=== PATIENT | female | born 2000 | race Caucasian/White ===

== ENCOUNTER 2022-01-30 22:17 | Emergency (ER) | payer BC, SELFPAY ==
[2022-01-30 22:18] VITALS: BP 150/93; PULSE 90; RESP 14; TEMP 37; O2SAT 100; BMI 18.6
--- NOTE | 2022-01-30 22:19 | ECG_ITS ---
APPROVED REPORT Exam: Resting ECG HR:81 bpm ECG Measurements Heart Rate 81 AXES AL 180 P 69 QRSd 86 QRS 83 QT 345 T 57 QTc 382 Conclusion SINUS RHYTHM NORMAL ECG INTERPRETATION BASED ON A DEFAULT AGE OF 40 YEARS UNCONFIRMED REPORT Electronically signed by : Chico Solano MD 01/31/2022 13:48:14
--- NOTE | 2022-01-30 22:24 | XR_ITS ---
PROCEDURE INFORMATION: Exam: XR Chest Exam date and time: 01/30/2022 10:22 PM Age: 21 years old Clinical indication: Chest wall pain; Additional info: Chest pain TECHNIQUE: Imaging protocol: Radiologic exam of the chest. Views: 2 views. COMPARISON: No relevant prior studies available. FINDINGS: Lungs: No acute pulmonary findings. No pulmonary consolidation. Lung volumes within upper normal limits. Pleural spaces: Unremarkable. No significant pleural effusion. No pneumothorax. Heart/Mediastinum: The cardiac silhouette is normal. Bones/joints: Mild thoracolumbar scoliosis. There is no evidence of acute fracture. Soft tissues: No acute findings in the soft tissues. No soft tissue emphysema. IMPRESSION: 1. No acute cardiopulmonary findings. 2. There is no evidence of acute fracture. 3. Thoracolumbar scoliosis.
[2022-01-30 22:32] LABS: Basophils # 0.1 K/mm3 (0-0.2); Basophils % 1.4 % (0.1-2.0); Eosinophils % 0.5 % (0.1-12.0); Hematocrit 43.7 % (37.0-47.0); Hemoglobin 14.1 g/dL (12.2-16.2); Lymphocytes # 1.9 K/mm3 (0.7-4.5); Lymphocytes % 27.2 % (10-50); Mean Corpuscular HGB Conc 32.2 g/dL (31.8-35.4); Mean Corpuscular Hemoglobin 28.1 pg (27.0-31.2); Mean Corpuscular Volume 87.3 fl (81-99); Mean Platelet Volume 8.1 fl (7.4-10.4); Monocytes # 0.2 K/mm3 (0.1-1.0); Monocytes % 2.6 % (1.7-9.3); Neutrophils # 4.9 K/mm3 (1.8-7.8); Neutrophils % 68.3 % (37.0-80.0); Platelet Count 263 K/mm3 (142-424); Red Cell Distribution Width 13.3 % (11.5-17.5); White Blood Count 7.1 K/mm3 (4.5-13.0)
[2022-01-30 22:39] LABS: Alanine Aminotransferase 18 U/L (12-78); Albumin Level 4.6 g/dl (3.5-5.0); Alkaline Phosphatase 89 U/L (38-126); Anion Gap 10.7 mEq/L (5-15); Aspartate Amino Transferase 26 U/L (14-36); Bilirubin,Direct 0.1 mg/dl (0.0-0.4); Bilirubin,Indirect 0.2 mg/dL (0.0-0.9); Bilirubin,Total 0.3 mg/dl (0.2-1.3); Bilirubin,Unconjugated 0.1 mg/dL (0.0-1.1); Blood Urea Nitrogen 9 mg/dl (7-17); Calcium 9.5 mg/dl (8.4-10.2); Carbon Dioxide 28 mmol/L (22.0-30.0); Chloride 103 mmol/L (98-107); Creatinine Clearance Estimated 123 mL/min (50-200); Estimated Glomerular Filt Rate 127 ml/min (>60); GFR (African American) 154 ML/MIN (>60); Glucose 110 mg/dl (74-100); Potassium 3.7 mmoL/L (3.5-5.1); Sodium 138 mmol/L (136-145); Total Protein,Serum 7.3 g/dl (6.3-8.2)
--- NOTE | 2022-01-30 22:41 | HMH.EDCP ---
Discharge Plan Disposition Chief Complaint: Chest Pain Prescriptions Prescriptions: No Action doxycycline hyclate [Vibramycin] 100 mg capsule 100 mg PO BID Qty: 20 0RF triamcinolone acetonide 15 GM cream 1 applicatio TP TIDP PRN (Reason: Itching) 7 Days Qty: 1 0RF Rx Instructions: 0.1% mupirocin 22 GM ointment 1 applicatio TP TID 7 Days Qty: 1 0RF cephalexin 500 MG capsule 500 mg PO Q6H 10 Days Qty: 40 0RF Referrals Follow up/Referrals: Provider,Referral, MD [Referring] - See instructions Clinical Impressions Clinical Impression: Atypical chest pain Instructions Patient Instructions: DI for Atypical Chest Pain Discharge ED Provider: Martin Tejada Chest Pain HPI General Chief Complaint: Chest Pain Stated Complaint: Chest Pain Time Seen by Provider: 01/30/22 22:41 Mode of Arrival: Ambulatory Source of Information: Patient, Significant Other and Medical Record Limitations: No Limitations Description of Symptoms (Recalled from ER Triage Doc. by RN): Pt reports drinking a 16oz energy drink around 4:45pm and has had a sharp pain in her chest since. She denies SOA or radiating pain. She does endorse nause w/o vomiting. Radial pulse is regular w/ a rate of 92. History of Present Illness HPI narrative: acute ches pain after drinking energy drink complaint: chest pain Onset (ago): hour(s) Duration: now resolved Activity at onset: during rest Pain location: epigastric Severity: moderate Quality: sharp Associated symptoms: palpitations Risk Factors for CAD: Family Hx of CAD Treatments prior to or on arrival for Cardiac Chest Pain: none SUKHWINDER Score for Non-Stemi Age of Patient: <30 years old Heart Rate: 90-109 bpm Systolic Blood Pressure: 140-159 mmHg Serum Creatinine: 0.40-0.79 mg/dl CHF [place] Class: I-No CHF Other Risk Factors: None Non-Stemi Risk Score: 43 Related Data On Oral Contraceptives: No Previous Rx's Medication Instructions Recorded cephalexin 500 mg capsule 500 mg PO Q6H 10 days #40 caps 12/06/21 mupirocin 2 % topical ointment 1 applicatio topical TID 7 days ##1 12/06/21 triamcinolone acetonide 0.025 % 1 applicatio topical TIDP PRN 12/06/21 topical cream Itching 7 days ##1 doxycycline hyclate 100 mg capsule 100 mg PO BID #20 caps 12/07/21 (Vibramycin) Allergies Allergy/AdvReac Type Severity Reaction Status Date / Time No Known Allergies Allergy Verified 01/30/22 22:42 PFSH PFSH Social History Smoking Status: Never smoker alcohol intake: never current occupational status: employed Travel in the last 8 weeks: None ROS Obtained: Yes All systems reviewed & no additional complaints except as documented Physical Exam General General appearance: alert Head Head exam: normocephalic Eye Eye exam: Present PERRL and EOMI ENT ENT exam: Present mucous membranes moist Neck Neck exam: Present trachea midline Respiratory Respiratory exam: Present normal lung sounds bilaterally Cardiovascular Cardiovascular exam: Present regular rate; Absent systolic murmur, rubs or gallop Abdominal Exam Abdominal exam: Present soft Extremities Exam Extremities exam: Present full ROM Neurological Exam Neurological exam: Present alert, oriented X3 and CN II-XII intact Psychiatric Psychiatric exam: Present normal affect Skin Skin exam: Absent rash Medical Decision Making Medical Records Medical records reviewed: Yes I reviewed the patient's medical records. Anam Inquiry Pt receiving controlled substance: No Vital Signs: 01/30/22 22:18 Temperature 98.6 F Temperature Source Oral Pulse Rate [Right Radial] 90 Respiratory Rate 14 Blood Pressure [Right Arm] 150/93 H Blood Pressure Mean [Right Arm] 112 Blood Pressure Source [Right Arm] Automatic Cuff Blood Pressure Position [Right Arm] Sitting 02 Sat by Pulse Oximetry 100 Oxygen Delivery Method Room Air Lab Data Lab results reviewed: Yes I reviewed the patient's lab results. Lab Results
[2022-01-30 22:44] LABS: C-Reactive Protein 0.8 mg/L (0-4)
[2022-01-30 22:45] VITALS: BP 117/75; PULSE 78; RESP 14; O2SAT 100
[2022-01-30 22:55] LABS: Troponin I < 0.01 ng/ml (0.00-0.034)
[2022-01-30 22:59] LABS: Procalcitonin < 0.030 ng/mL (0.0-2.0)
[2022-01-30 23:00] LABS: Erythrocyte Sedimentation Rate 5 mm/hr (0-20)
[2022-01-30 23:04] LABS: Lipase 70 U/L (23-300)
[2022-01-30 23:15] VITALS: BP 101/59; PULSE 71; RESP 14; O2SAT 99
--- NOTE | 2022-01-30 23:18 | PC.NURSE ---
Pt states she is feeling alot better
[2022-01-30 23:58] VITALS: BP 119/62; PULSE 81; PULSE 84; RESP 19; TEMP 36.6; O2SAT 100
== END 2022-01-31 00:02 | disposition home or self-care (01) ==
PROVIDERS: Emergency Provider Emergency Medicine; PCP Nurse Practitioner Family
DX: R07.89 Other chest pain (principal)
CPT/HCPCS: 71046; 80048; 80076; 83690; 84145; 84484; 85025; 85651; 86140; 93005; 96365; 96375; 99284; J2405

== ENCOUNTER → 2022-11-30 16:10 | Outpatient (CLI) | payer BC, SELFPAY ==
[2022-12-02 08:17] LABS: Progesterone 15.3 ng/mL (.)
== END ==
PROVIDERS: PCP Nurse Practitioner Family; Visit Provider Obstetrics & Gynecology
DX: N92.6 Irregular menstruation, unspecified (principal); Z32.00 Encounter for pregnancy test, result unknown
CPT/HCPCS: 36415; 84144; 84702

== ENCOUNTER → 2023-01-30 14:01 | Outpatient (CLI) | payer BC, SELFPAY | PROVIDERS: Visit Provider Obstetrics & Gynecology | DX: Z34.92 Encounter for supervision of normal pregnancy, unspecified, second trimester (principal); Z3A.16 16 weeks gestation of pregnancy | CPT/HCPCS: 87086 ==

== ENCOUNTER → 2023-02-02 09:37 | Outpatient (CLI) | payer BC, SELFPAY ==
[2023-02-02 10:05] LABS: Basophils % 0.2 % (0.1-2.0); Eosinophils % 0.5 % (0.1-12.0); Hematocrit 38.2 % (37.0-47.0); Hemoglobin 12.4 g/dL (12.2-16.2); Lymphocytes # 1.5 K/mm3 (0.7-4.5); Lymphocytes % 24.7 % (10-50); Mean Corpuscular HGB Conc 32.5 g/dL (31.8-35.4); Mean Corpuscular Hemoglobin 28.2 pg (27.0-31.2); Mean Corpuscular Volume 86.7 fl (81-99); Mean Platelet Volume 7.4 fl (7.4-10.4); Monocytes # 0.2 K/mm3 (0.1-1.0); Monocytes % 3.1 % (1.7-9.3); Neutrophils # 4.4 K/mm3 (1.8-7.8); Neutrophils % 71.5 % (37.0-80.0); Platelet Count 163 K/mm3 (142-424); Red Cell Distribution Width 13.5 % (11.5-17.5); White Blood Count 6.1 K/mm3 (4.8-10.8)
[2023-02-03 08:24] LABS: Rubella Antibodies, IgG 1.61 index (Immune >0.99)
[2023-02-03 11:34] LABS: Rapid Plasma Reagin Ab Titer Non Reactive (NonRea<1:1)
[2023-02-12 12:07] LABS: HIV Screen 4th Generation wRfx Non Reactive; Hepatitis B Surface Antigen Negative; Hepatitis C Antibody Non Reactive
== END ==
PROVIDERS: Visit Provider Obstetrics & Gynecology
DX: Z34.92 Encounter for supervision of normal pregnancy, unspecified, second trimester (principal); Z3A.16 16 weeks gestation of pregnancy
CPT/HCPCS: 36415; 85025; 86593; 86703; 86762; 86850; 87340; 87380; G0432

== ENCOUNTER → 2023-03-23 12:41 | Outpatient (CLI) | payer BC, SELFPAY ==
--- NOTE | 2023-03-23 12:41 | US_ITS ---
PROCEDURE: US OB /MATERNAL DETAIL CLINICAL INDICATION: 20 week anatomy scan COMPARISON: No exams were available for comparison FINDINGS: Transabdominal sonographic images of the pelvis were obtained. From her established due date she is 23 weeks 2 days. Single viable intrauterine gestation. Cephalic position. Placenta: Posteriorplacenta grade 1. There is an average amount of fluid. The cervix appears satisfactory. Closed and measuring 2.8cm in length. Complete survey performed and was unremarkable on the submitted images as in PACS. No discrete anomalies identified on survey imaging by technologist. Active fetus. Three-vessel cord with satisfactory umbilical cord insertion. 4- chamber heart noted. Situs, LVOT, RVOT, aortic arch, three-vessel view appear normal. Survey of brain & ventricles Unremarkable. Choroid plexus, cerebellum, thalamus, cisterna magna appear normal. Face and neck survey unremarkable. Profile, nasion, lips and nose appeared normal. Diaphragm and chest views unremarkable. Abdomen: Both kidneys noted and unremarkable. Stomach and bladder noted and satisfactory. Spine: Survey of the spine satisfactory with no anomalies identified nor imaged. Cervical, thoracic and lower spine appear normal. Both arms and legs noted. Amniotic Fluid: Adequate. Measurements: Average ultrasound age 23weeks 0 days. Estimated due date by ultrasound age 0207/20/2023. Estimated weight 535g BPD = 23weeks 2days HC = 22weeks 6days AC = 22weeks 6days FL = 22weeks 5days Growth Percentile= 21 Heart Rate = 147bpm Cerebellum = 23weeks 1day Humerus = 23weeks 1day HC/AC is 1.15 FL/BPD is 0.7 FL/AC is 0.22 IMPRESSION: 1. Viable fetus in the cephalic presentation with a posterior placenta grade 1. 2. The fluid is within normal limits. 3. The anatomical scan appears normal. 4. biometry is consistent with dates. Dictated by: Amol Joy MD 03/26/2023 08:39 Amol Joy MD in OV 03/26/2023 08:39
== END ==
PROVIDERS: PCP Family Medicine; Visit Provider Obstetrics & Gynecology
DX: Z34.92 Encounter for supervision of normal pregnancy, unspecified, second trimester (principal); Z3A.20 20 weeks gestation of pregnancy
CPT/HCPCS: 76811

== ENCOUNTER → 2023-04-24 07:47 | Outpatient (CLI) | payer BC, SELFPAY ==
[2023-04-24 08:15] LABS: Basophils # 0.1 K/mm3 (0-0.2); Basophils % 0.6 % (0.1-2.0); Eosinophils # 0.1 K/mm3 (0.0-0.4); Eosinophils % 0.7 % (0.1-12.0); Hematocrit 34.4 % (37.0-47.0); Hemoglobin 11.7 g/dL (12.2-16.2); Lymphocytes # 2.1 K/mm3 (0.7-4.5); Lymphocytes % 26.3 % (10-50); Mean Corpuscular Hemoglobin 27.8 pg (27.0-31.2); Mean Corpuscular Volume 81.8 fl (81-99); Mean Platelet Volume 8.4 fl (7.4-10.4); Monocytes # 0.3 K/mm3 (0.1-1.0); Monocytes % 4.2 % (1.7-9.3); Neutrophils # 5.4 K/mm3 (1.8-7.8); Neutrophils % 68.2 % (37.0-80.0); Platelet Count 196 K/mm3 (142-424); Red Cell Distribution Width 13.6 % (11.5-17.5); White Blood Count 7.9 K/mm3 (4.8-10.8)
[2023-04-24 08:24] LABS: Glucose,Fasting 81 mg/dl (74-100)
[2023-04-24 09:40] LABS: Glucose 1 Hour 118 mg/dL (74-100)
== END ==
PROVIDERS: PCP Family Medicine; Visit Provider Obstetrics & Gynecology
DX: Z34.93 Encounter for supervision of normal pregnancy, unspecified, third trimester (principal); Z3A.28 28 weeks gestation of pregnancy
CPT/HCPCS: 36415; 82951; 85025

== ENCOUNTER → 2023-05-02 16:45 | Outpatient (CLI) | payer BC, SELFPAY | PROVIDERS: PCP Family Medicine; Visit Provider Obstetrics & Gynecology | DX: Z34.93 Encounter for supervision of normal pregnancy, unspecified, third trimester (principal); Z3A.29 29 weeks gestation of pregnancy | CPT/HCPCS: 36415 ==

== ENCOUNTER 2023-05-03 11:56 | Outpatient (CLI) | payer BC, SELFPAY ==
[2023-05-03 12:06] VITALS: BP 128/78; PULSE 91; RESP 18; TEMP 37.2; O2SAT 100
== END 2023-05-03 12:18 | disposition home or self-care (01) ==
LOC: INF 11:59
PROVIDERS: PCP Family Medicine; Visit Provider Obstetrics & Gynecology
DX: O26.893 Other specified pregnancy related conditions, third trimester (principal); Z3A.29 29 weeks gestation of pregnancy
CPT/HCPCS: 96372; J2790

== ENCOUNTER 2023-06-21 22:04 | Outpatient (CLI) | payer OTHER, SELFPAY | END 2023-06-21 23:59 | LOC: LAB.DROPOF 22:04 | PROVIDERS: PCP Obstetrics & Gynecology; Visit Provider Obstetrics & Gynecology | DX: Z34.93 Encounter for supervision of normal pregnancy, unspecified, third trimester (principal); Z3A.36 36 weeks gestation of pregnancy | CPT/HCPCS: 86403 ==

== ENCOUNTER 2023-06-25 16:22 | Outpatient (CLI) | payer OTHER, SELFPAY ==
[2023-06-25 16:53] VITALS: BMI 25.5
[2023-06-25 17:01] VITALS: BP 145/79; PULSE 92; RESP 20; TEMP 37.2; O2SAT 95; BMI 24.7
[2023-06-25 17:10] LABS: Microscopic, Urine URINE MICROSCOPIC (MICROSCOPIC)
[2023-06-25 17:17] LABS: Appearance,Urine CLEAR (Clear); Bilirubin,Urine Negative (Negative); Blood, Urine Negative (Negative); Color,Urine YELLOW (Yellow); Glucose,Urine (UA) Negative (Negative); Ketones,Urine Negative (Negative); Leukocyte Esterase,Urine 1+ (Negative); Nitrate,Urine Negative (Negative); Protein,Urine Negative (Negative); Specific Gravity, Urine >= 1.030 (1.005-1.030); Urobilinogen,Urine 0.2 EU/dl (0.2)
[2023-06-25 17:28] LABS: Fetal Membrane Rupture (Rapid) Negative (Negative)
[2023-06-25 18:07] LABS: Bacteria,Urine Trace /lpf; Calcium Oxalate Crystals,Urine 1+ /lpf; RBC,Urine Occasional #/hpf (0-3)
[2023-06-25] MEDS: LACTATED RINGERS 1000ML 1,000 ML 999 ML IV (18:17)
[2023-06-25 21:06] LABS: Benzodiazepines Screen,Urine Negative ng/ml (<200)
[2023-06-25 21:07] LABS: Amphetamine/Metha Screen,Urine Negative ng/ml (<1000)
[2023-06-25 21:08] LABS: Barbiturates Screen,Urine Negative ng/ml (<200); Methadone Screen,Urine Negative ng/ml (<300)
[2023-06-25 21:09] LABS: Cannabinoid Screen,Urine Negative ng/ml (<50); Cocaine Screen,Urine Negative ng/ml (<300)
[2023-06-25 21:10] LABS: Opiate Screen,Urine Negative ng/ml (<300)
[2023-06-25 21:11] LABS: Phencyclidine Screen,Urine Negative ng/ml (<25)
== END 2023-06-25 18:59 | disposition home or self-care (01) ==
LOC: OBOUT 16:25 → OB 16:26
PROVIDERS: PCP Family Medicine; Visit Provider Nurse Practitioner Obstetrics & Gynecology
DX: O26.893 Other specified pregnancy related conditions, third trimester (principal); Z3A.36 36 weeks gestation of pregnancy
CPT/HCPCS: 59025; 80307; 81001; 84112; 87086; 96365; G0463

== ENCOUNTER 2023-07-05 14:25 | Inpatient (IN) | payer OTHER, SELFPAY ==
[2023-07-05 14:07] VITALS: BMI 26.1
[2023-07-05 14:23] LABS: Microscopic, Urine URINE MICROSCOPIC (MICROSCOPIC)
[2023-07-05 14:26] LABS: Appearance,Urine SL CLOUDY (Clear); Bilirubin,Urine Negative (Negative); Blood, Urine 2+ (Negative); Color,Urine YELLOW (Yellow); Glucose,Urine (UA) Negative (Negative); Ketones,Urine Negative (Negative); Leukocyte Esterase,Urine 1+ (Negative); Nitrate,Urine Negative (Negative); Protein,Urine Negative (Negative); Specific Gravity, Urine >= 1.030 (1.005-1.030)
[2023-07-05 14:31] LABS: Benzodiazepines Screen,Urine Negative ng/ml (<200)
[2023-07-05 14:32] LABS: Barbiturates Screen,Urine Negative ng/ml (<200)
[2023-07-05 14:34] LABS: Cocaine Screen,Urine Negative ng/ml (<300)
[2023-07-05 14:35] LABS: Methadone Screen,Urine Negative ng/ml (<300); Opiate Screen,Urine Negative ng/ml (<300)
[2023-07-05 14:36] LABS: Phencyclidine Screen,Urine Negative ng/ml (<25)
[2023-07-05 14:41] LABS: Cannabinoid Screen,Urine Negative ng/ml (<50)
[2023-07-05 14:43] LABS: Bacteria,Urine 1+ /lpf
[2023-07-05 14:51] LABS: Fetal Membrane Rupture (Rapid) Negative (Negative)
[2023-07-05 14:57] LABS: Basophils % 0.3 % (0.1-2.0); Eosinophils % 0.2 % (0.1-12.0); Hematocrit 31.9 % (37.0-47.0); Hemoglobin 10.7 g/dL (12.2-16.2); Lymphocytes # 1.6 K/mm3 (0.7-4.5); Lymphocytes % 16.6 % (10-50); Mean Corpuscular HGB Conc 33.6 g/dL (31.8-35.4); Mean Corpuscular Hemoglobin 24.8 pg (27.0-31.2); Mean Corpuscular Volume 73.9 fl (81-99); Mean Platelet Volume 8.7 fl (7.4-10.4); Monocytes # 0.5 K/mm3 (0.1-1.0); Monocytes % 4.6 % (1.7-9.3); Neutrophils # 7.6 K/mm3 (1.8-7.8); Neutrophils % 78.3 % (37.0-80.0); Platelet Count 199 K/mm3 (142-424); Red Blood Count 4.32 M/mm3 (4.20-5.40); Red Cell Distribution Width 16.3 % (11.5-17.5); White Blood Count 9.7 K/mm3 (4.8-10.8)
[2023-07-05 15:01] LABS: Amphetamine/Metha Screen,Urine Negative ng/ml (<1000)
--- NOTE | 2023-07-05 16:16 | EXP.ANES.CKL ---
[facility] Disclaimer: The information contained in this section may have been updated after the patient was seen, as this information can be updated by other users. Medical History Nausea and vomiting during Rh negative state in antepartum period Screening for genetic disease carrier status 01/12/23 Horizon carrier screen is negative for 14 conditions tested including CF, Fragile X and SMA Surgical History History of tonsillectomy and adenoidectomy Family History Other No significant family history Social History Smoking Status: Never smoker alcohol intake: never substance use type: denies use current occupational status: employed Travel in the last 8 weeks: None [facility] Anesthesia Checklist Patient Identification Patient Identification: Verbal (Name & ) Structural Data Admitted From: Inpatient Planned Operative Procedure/s: labor epidural Consent for Planned Operative Procedure(s) Verified: Yes Airway Assessment Mallampati Score:: Class II C-Spine Mobility Assessed: Yes TMJ Mobility Assessed: Yes Dentition: Good Dentition Neurological Assessment Level of Consciousness: Awake, Alert and Appropriate Anesthesia Plan Anesthesia Risk discussed: Yes Anesthesia Plan: Verified ASA Class: II Anesthesia Type: Epidural
[2023-07-05 16:35] VITALS: BP 152/72; PULSE 109; RESP 18; TEMP 37; O2SAT 99; BMI 25.2
--- NOTE | 2023-07-05 18:00 | P.HP_ITS ---
OB - H&P: HPI Antepartum History of Present Illness Chief complaint: Regular, painful contractions History of present illness: Mrs Pricilla Salter is a 23 yo at 38w1d who presents to [facility] Labor and Delivery with painful contractions that started at 0900 and progressively increased in intensity and frequency as the day progressed. Good movement. She states for the past 2 days she was soaking pads. She has had good care. GBS negative. Upon arrival to triage SVE was 5/90/+1. Amnisure was negative. History of Present Criteria for establishing EDC:: LMP confirmed by 1st trimester US care: good care Ultrasounds: normal mid trimester US Obstetrical complications: none Medical complications: none Labs Blood type: O (-) negative Rubella: immune RPR/VDRL: nonreactive GBS status: negative [facility]: [facility] Disclaimer: The information contained in this section may have been updated after the patient was seen, as this information can be updated by other users. Medical History (Updated 07/05/23 @ 18:19 by Alison Rosenbaum DO) 38 weeks gestation of Active labor Nausea and vomiting during Rh negative state in antepartum period Screening for genetic disease carrier status Surgical History History of tonsillectomy and adenoidectomy Family History Other No significant family history Social History (Updated 07/05/23 @ 17:05 by Shreyas Santos RN) Smoking Status: Never smoker alcohol intake: never substance use type: denies use current occupational status: employed Travel in the last 8 weeks: None Review of Systems Review of Systems Review of systems:: pertinent systems reviewed and negative unless documented below *Genitourinary Comments: + regular, painful contractions, leaking fluid Meds Home Medications and Allergies Home Medications Medication Instructions Recorded Confirmed Type vits no.126-ferrous fum 1 tab PO DAILY 03/02/23 06/28/23 History 28 mg iron-folic acid 800 mcg tablet (Classic ) New Prescriptions to Start Prescriptions: Allergies Allergy/AdvReac Type Severity Reaction Status Date / Time No Known Allergies Allergy Verified 06/28/23 15:59 OB - H&P: Exam Physical Exam Vital signs: Temp Pulse Resp BP Pulse Ox O2 Del Method 98.6 F 109 H 18 152/72 H 99 Room Air 07/05/23 16:35 07/05/23 16:35 07/05/23 16:35 07/05/23 16:35 07/05/23 16:35 07/05/23 16:35 Constitutional no acute distress and cooperative Routine HEENT Exam Head: Present normocephalic and atraumatic Eye: Absent conjunctivae pink ENT: Present mucous membranes moist Routine Neck Exam Present full ROM Routine Respiratory Exam Present CTA bilaterally and normal respiratory effort Routine Cardiovascular Exam Present RRR Routine Abdominal Exam Present soft (Gravid); Absent tenderness Routine Rectal Exam Patient deferred: visual exam Routine Exam External: Present normal urethra appearance; Absent erythema, lesions or lacerations Routine Extremities Exam Present full ROM; Absent edema or calf tenderness Routine Neurological Exam Present alert, moving all extremities and normal speech Routine Psychiatric Exam Present normal affect and cooperative Detailed Labor and Delivery Exam Dilation (cm): 5 Effacement (%): 90 Cervix position: mid station: 0 Consistency: soft Membranes: artificially ruptured Amniotic fluid: clear Baseline heart rate: 130 monitor accelerations: Absent monitor decelerations: None data management variability: Moderate (11-25) Contraction frequency (min): 3 OB - Results Labs Labs: Short CBC 07/05/23 Range/Units 14:45 WBC 9.7 (4.8-10.8) K/mm3 Hgb 10.7 L (12.2-16.2) g/dL Hct 31.9 L (37.0-47.0) % Plt Count 199 (142-424) K/mm3 Urine 07/05/23 Range/Units 14:05 Urine Color Yellow (Yellow) Urine Appearance Sl cloudy (Clear) Urine pH 6.0 (5.0-8.5) Ur Specific [place] >= 1.030 (1.005-1.030) Urine Protein Negative (Negative) Urine Glucose (UA) Negative (Negative) OB - A/P Antepartum (1) 38 weeks gestation of : Status: Acute (2) Active labor: Status: Acute (3) Rh negative state in antepartum period: Status: Acute Additional Plan Planning to breastfeed?: No Plan: expectant management
[2023-07-05] MEDS: OXYTOCIN/RINGERS LACTATE 30 UNITS/500 ML BAG 40 UNITS IV (20:59)
--- NOTE | 2023-07-05 21:06 | EXP.DN ---
Delivery Note Delivery Date:: 07/05/23 Delivery Time:: 20:53 Anesthesia Type: Epidural Was labor medically induced?: No Induction method: none Gestational age (weeks): 38 Infant delivered prior to 39 weeks?: Yes Justification for early elective delivery:: Active Labor Gender: Female at 1 minute: 7 at 5 minutes: 9 Delivery Procedure:: Mom complete with epidural. Pushed for approximately 90 minutes. Head delivered spontaneously over intact perineum in direct OA position. No nuchal cord. Anterior shoulder delivered with gentle downward pressure. Posterior shoulder and remainder of body delivered spontaneously. Baby placed on maternal abdomen, mouth and nares bulb suctioned, warmed/dried and stimulated. Delayed cord clamping was performed for 60 seconds. Cord was clamped and cut by grandmother of baby. Cord gas obtained. Cord blood was obtained. Placenta delivered spontaneously and intact. No lacerations. Mom and baby were skin to skin and doing well after delivery. Live female baby (baby's name is Rimma) APGARs 7 (1 min), 9 (5 min) EBL 150 mL Placental Delivery Description: Spontaneous
[2023-07-05 21:07] LABS: Cord Blood PH 7.34 (7.35-7.45)
[2023-07-06] MEDS: BENZOCAINE-MENTHOL SPRAY 56GM CAN TP (00:10)
[2023-07-06] MEDS: WITCH HAZEL 40 PADS/BOX 1 EACH TP (00:10)
[2023-07-06 04:34] VITALS: BP 133/59; PULSE 96; RESP 18; TEMP 36.7; O2SAT 99
[2023-07-06 06:53] LABS: Basophils % 0.2 % (0.1-2.0); Eosinophils % 0.1 % (0.1-12.0); Hematocrit 31.1 % (37.0-47.0); Hemoglobin 10.3 g/dL (12.2-16.2); Lymphocytes # 1.5 K/mm3 (0.7-4.5); Lymphocytes % 12.4 % (10-50); Mean Corpuscular HGB Conc 33.2 g/dL (31.8-35.4); Mean Corpuscular Hemoglobin 24.4 pg (27.0-31.2); Mean Corpuscular Volume 73.5 fl (81-99); Mean Platelet Volume 9.6 fl (7.4-10.4); Monocytes # 0.6 K/mm3 (0.1-1.0); Monocytes % 4.7 % (1.7-9.3); Neutrophils # 10.3 K/mm3 (1.8-7.8); Neutrophils % 82.6 % (37.0-80.0); Platelet Count 175 K/mm3 (142-424); Red Blood Count 4.23 M/mm3 (4.20-5.40); Red Cell Distribution Width 16.4 % (11.5-17.5); White Blood Count 12.5 K/mm3 (4.8-10.8)
[2023-07-06 08:08] VITALS: BP 137/79; PULSE 108; RESP 16; TEMP 37.1; O2SAT 97
[2023-07-06] MEDS: IBUPROFEN 400 MG TABLET 800 MG PO ×2 (09:47→19:01)
--- NOTE | 2023-07-06 12:09 | P.PN_ITS ---
Subjective *Date: 07/06/23 *Time: 12:40 Interval history: PPD # 1 s/p Pricilla is resting comfortably. Denies pain. Formula feeding. Lochia appropriate. Voiding without difficulty and passing flatus. Tolerating regular diet. Denies fever/chills, chest pain and shortness of breath. No headaches, vision changes or swelling. Ambulating well ad teresa. Medical Exam Vital signs and Labs for Last 24 Hours: Vital Signs Temp Pulse Resp BP Pulse Ox O2 Del Method 07/06/23 08:08 98.8 F 108 H 16 137/79 97 Room Air 07/06/23 04:34 98.1 F 96 H 18 133/59 L 99 Room Air 07/05/23 16:35 98.6 F 109 H 18 152/72 H 99 Room Air Intake and Output 07/05/23 07/06/23 07/06/23 23:59 07:59 15:59 Intake Total 900 / 900 Balance 900 / 900 Intake: Intake, Total IV Amount 450 / 450 Oxytocin/Ringers Lactate 30 450 / 450 units In 500 ml @ 40 mls/hr IV .[id number] [facility] Rx#:[id number] Infusion Intake 450 / 450 Oxytocin/Ringers Lactate 30 450 / 450 units In 500 ml @ 40 mls/hr IV .[id number] [facility] Rx#:[id number] Other: Weight 152 lb Laboratory Results - last 24 hr 07/05/23 14:05: Urine Color Yellow, Urine Appearance Sl cloudy, Urine pH 6.0, Ur Specific [place] >= 1.030, Urine Protein Negative, Urine Glucose (UA) Negative, Urine Ketones Negative, Urine Blood 2+, Urine Nitrate Negative, Urine Bilirubin Negative, Urine Urobilinogen 1.0, Ur Leukocyte Esterase 1+ A, Urine RBC 3-5, Urine WBC 10-20, Ur Squamous Epith Cells 5-10, Urine Bacteria 1+, Urine Opiates Screen Negative, Urine Methadone Screen Negative, Ur Barbituates Screen Negative, Ur Phencyclidine Scrn Negative, Ur Amphetamines Screen Negative, U Benzodiazepines Scrn Negative, Urine Cocaine Screen Negative, U Marijuana (THC) Screen Negative 07/05/23 14:45: WBC 9.7, RBC 4.32, Hgb 10.7 L, Hct 31.9 L, MCV 73.9 L, MCH 24.8 L, MCHC 33.6, RDW 16.3, Plt Count 199, MPV 8.7, Neut % (Auto) 78.3, Lymph % (Auto) 16.6, Bibb % (Auto) 4.6, Eos % (Auto) 0.2, Baso % (Auto) 0.3, Neut # (Auto) 7.6, Lymph # (Auto) 1.6, Bibb # (Auto) 0.5, Eos # (Auto) 0.0, Baso # (Auto) 0.0, Blood Type O Negative, Antibody Screen Positive, Antibody Identification Anti-D 07/05/23 20:55: Cord ABG pH 7.34 L 07/05/23 : Membrane Rupture Negative 07/06/23 06:40: WBC 12.5 H D, RBC 4.23, Hgb 10.3 L, Hct 31.1 L, MCV 73.5 L, MCH 24.4 L, MCHC 33.2, RDW 16.4, Plt Count 175, MPV 9.6, Neut % (Auto) 82.6 H, Lymph % (Auto) 12.4, Bibb % (Auto) 4.7, Eos % (Auto) 0.1, Baso % (Auto) 0.2, Neut # (Auto) 10.3 H, Lymph # (Auto) 1.5, Bibb # (Auto) 0.6, Eos # (Auto) 0.0, Baso # (Auto) 0.0 I & O for Labs for Last 24 Hours: Intake & Output 07/03/23 07/04/23 07/05/23 07/06/23 23:59 23:59 23:59 23:59 Intake Total 900 / 900 Balance 900 / 900 Weight 152 lb Head: Present atraumatic and normocephalic ENT: Present normal exam Neck: Present full ROM Respiratory: Present CTA bilaterally and normal respiratory effort Cardiac: Present Reg Rate and Rhythm GI: Present soft; Absent tenderness Comments:: Uterine fundus firm and below umbilicus Rectal (female): Present deferred (female): Present deferred Extremities: Present full ROM; Absent edema or calf tenderness Neuro: Present alert, awake and moves all extremities Assessment and Plan *Assessment and plan (1) Status post vaginal delivery: Status: Acute Category: Surgical (2) 38 weeks gestation of : Status: Acute Category: Medical Code(s): Z3A.38 - 38 weeks gestation of (3) Active labor: Status: Acute Category: Medical (4) Rh negative state in antepartum period: Status: Acute Category: Medical Code(s): O26.899 - Other specified related conditions, unspecified trimester; Z67.91 - Unspecified blood type, Rh negative Plan Continue routine care Encouraged increased ambulation AM H/H = 10.3/31.1 (Admission H/H = 10.7/31.9) Plan d/c home tomorrow
[2023-07-06] MEDS: ACETAMINOPHEN 500MG TAB 1000 MG PO (14:37)
[2023-07-06] MEDS: LACTATED RINGERS 1000ML 1,000 ML 999 ML IV (15:02)
[2023-07-06] MEDS: PRENATAL MULTIVITAMIN W/IRON 1 EACH PO (17:14)
[2023-07-06 20:39] VITALS: BP 143/74; PULSE 110; RESP 18; TEMP 37.4; O2SAT 97
[2023-07-07] MEDS: IBUPROFEN 400 MG TABLET 800 MG PO (02:45)
[2023-07-07 04:37] VITALS: BP 139/66; PULSE 90; RESP 17; TEMP 36.9; O2SAT 97
[2023-07-07 08:44] VITALS: BP 131/82; PULSE 89; RESP 18; TEMP 36.9; O2SAT 99
--- NOTE | 2023-07-07 11:00 | P.DS_ITS ---
General Admission date:: 07/05/23 Discharge date: 07/07/23 HPI HPI HPI: Chief complaint: Regular, painful contractions History of present illness: Mrs Pricilla Salter is a 23 yo at 38w1d who presents to [facility] Labor and Delivery with painful contractions that started at 0900 and progressively increased in intensity and frequency as the day progressed. Good movement. She states for the past 2 days she was soaking pads. She has had good care. GBS negative. Upon arrival to triage SVE was 5/90/+1. Amnisure was negative. History of Present Criteria for establishing EDC:: LMP confirmed by 1st trimester US care: good care Ultrasounds: normal mid trimester US Obstetrical complications: none Medical complications: none Labs Blood type: O (-) negative Rubella: immune RPR/VDRL: nonreactive GBS status: negative HBsAG: negative Hospital Course Hospital Course Hospital Course: Pricilla is a 23yo PPD#2 from a . She is resting comfortably. Reports she is tired as infant was up most of the night with an upset stomach. Infant currently resting peacefully. Denies pain. Formula feeding. Declines resources. Lochia appropriate. Voiding without difficulty and passing flatus. Tolerating regular diet. Denies fever/chills, chest pain and shortness of breath. No headaches, vision changes or swelling. Ambulating well ad teresa. routine discharge instructions reviewed with the patient in detail and she voiced understanding all questions and concerns were addressed. Exam Data for Last 24 hours Vital signs and Labs for Last 24 Hours: Temp Pulse Resp BP Pulse Ox O2 Del Method 98.5 F 89 18 131/82 99 Room Air 07/07/23 08:44 07/07/23 08:44 07/07/23 08:44 07/07/23 08:44 07/07/23 08:44 07/07/23 08:44 I & O for Last 24 hours: Intake & Output 07/04/23 07/05/23 07/06/23 07/07/23 23:59 23:59 23:59 23:59 Intake Total 900 / 900 Balance 900 / 900 Weight 152 lb Narrative: Head: atraumatic and normocephalic ENT: normal exam Neck: full ROM Respiratory: CTA bilaterally and normal respiratory effort Cardiac: Reg Rate and Rhythm GI: soft; Absent tenderness Comments:: Uterine fundus firm and below umbilicus Extremities: full ROM; Absent edema or calf tenderness Neuro: alert, awake and moves all extremities Constitutional Constitutional: no acute distress *Routine HEENT Exam Head: Present normocephalic Eye: Present EOMI and PERRL ENT: Present mucous membranes moist *Routine Neck Exam Neck: Present supple; Absent lymphadenopathy *Routine Respiratory Exam Respiratory: Present CTA bilaterally *Routine Cardiovascular Exam Cardiovascular: Present RRR *Routine Abdominal Exam Abdominal: Present soft and normoactive bowel sounds; Absent tenderness *Routine Extremities Exam Extremities: Absent cyanosis, clubbing or edema *Routine Skin Exam Skin: Present warm; Absent rash *Routine Neurological Exam Neurological: Present alert and oriented X3 DS: Diagnosis Discharge Diagnosis (1) Status post vaginal delivery: Status: Acute (2) 38 weeks gestation of : Status: Acute Code(s): Z3A.38 - 38 weeks gestation of (3) Active labor: Status: Acute (4) Rh negative state in antepartum period: Status: Acute Code(s): O26.899 - Other specified related conditions, unspecified trimester; Z67.91 - Unspecified blood type, Rh negative Problem details: Stable. PPD#2 s/p -Doing well. VSS. -Serial lochia and fundal checks have been appropriate for course. -O-/antibody positive: Anti-D -Bottle feeding, male infant -Reports no concerns for mental health. Denies any symptoms of anxiety or depression -Follow-up 2 weeks for routine visit and incision check #Anemia -Hemoglobin: 10.7--> 10.3 - asymptomatic anemia noted. Likely physiologic anemia of -Vitals stable. -DC with Fe -EBL: 150mL #Rh negative -infant blood type O negative. rhogam not indicated -Dispo: home today pending mother/ status Meds Home Medications and Allergies Home Medications Medication Instructions Recorded Confirmed Type vits no.126-ferrous fum 1 tab PO DAILY Supplement 03/02/23 07/06/23 History 28 mg iron-folic acid 800 mcg tablet (Classic ) ferrous sulfate 325 mg (65 mg 325 mg PO DAILY #30 tabs 07/07/23 Rx iron) tablet,delayed release ibuprofen 800 mg tablet 800 mg PO Q8H PRN pain #60 tabs 07/07/23 Rx New Prescriptions to Start Prescriptions: ferrous sulfate Ching Castro ibuprofen Ching Castro Allergies Allergy/AdvReac Type Severity Reaction Status Date / Time No Known Allergies Allergy Verified 06/28/23 15:59 Discharge Plan Disposition Patient Disposition: Home, Self-Care Discharge Order Discharge Orders: Discharge Order (Routine); Ordered 07/07/23 Ordered By: Ching Castro Follow up Plan Follow up with: Alison Rosenbaum DO [Staff Physician] - 2 weeks Prescriptions/Medication Reconciliation: New ferrous sulfate 325 mg (65 mg iron) tablet,delayed release (DR/EC) 325 mg PO DAILY Qty: 30 3RF ibuprofen 800 mg tablet 800 mg PO Q8H PRN (Reason: pain) Qty: 60 2RF Continued Classic 28 mg iron- 800 mcg tablet 1 tab PO DAILY Problem Reconciliation Problems Reviewed?: Yes Patient Discharge Instructions ACTIVITY: Continue current activity DIET: regular diet Additional Instructions: Congratulations on the delivery of your sweet baby girl. It is my privilege to be a part of your [employer] team. Discharge: 1. Take 800 mg Ibuprofen every 8 hours as needed for pain. You can also take 500-1000 mg of Tylenol in between doses, every 6-8 hours. 2. Iron supplements can make you constipated. Colace can be taken 1-2 times per day as you need. You can take iron tablets every other day if constipation is too bad. 3. Nothing in the vagina for 6 weeks - no sex, douching, tampons. No tub baths 4. Reasons to return to L&D or call On-Call doctor - fever (greater than 100.4) - heavy vaginal bleeding (soaking through 1 pad in less than 2 hours or passing clots that are egg sized) - vaginal discharge (malodorous and/or purulent) - severe headaches, leg tenderness/edema, or any other symptoms that warrant i mmediate medical attention. 8. depression/blues - Normal to feel anxious/overwhelmed for first 2 weeks - Talk to your doctor if: anxiety lasts over 2 weeks, trouble bonding with baby, withdrawing from other family members, thoughts of harming yourself or others Thanks for letting myself and our [facility] team be apart of your special day. Please let us know if we can help in the upcoming weeks Ching Castro DO [facility] [phone] *Nothing in the Vagina for 6 weeks* *No strenuous activity* *No heavy lifting* *No tub baths until okay's by MD* Patient Instructions: Depression, Hemorrhage, DI for Labor and Delivery, Vaginal , DI for Pre-eclampsia, [facility] Post Discharge Instructions Providers Primary Care Provider: Thanh Nelson Admit Provider: Alison Rosenbaum Attending Provider: Alison Rosenbaum
== END 2023-07-07 12:40 | disposition home or self-care (01) | DRG 807 ==
LOC: OBOUT 21:19 → OB 21:19
PROVIDERS: Admitting Provider Obstetrics & Gynecology; PCP Family Medicine; Visit Provider Obstetrics & Gynecology
DX: O90.81 Anemia of the puerperium (principal); Z37.0 Single live birth; Z3A.38 38 weeks gestation of pregnancy
CPT/HCPCS: 59409; 36415; 59025; 80307; 81001; 82800; 84112; 85025; 86850; 86870; 87086; 94761; G0283

== ENCOUNTER 2024-02-05 11:15 | Emergency (ER) | payer OTHER, SELFPAY ==
[2024-02-05 11:55] VITALS: BP 113/74; PULSE 92; RESP 20; TEMP 36.9; O2SAT 100; BMI 22.4
--- NOTE | 2024-02-05 12:05 | EXP.UTC ---
Discharge Plan Disposition Patient Disposition: Home, Self-Care Condition: Good Prescriptions Prescriptions: New benzonatate 100 mg capsule 100 mg PO TID PRN (Reason: cough) Qty: 30 0RF albuterol sulfate [Proventil HFA] 90 mcg/actuation HFA aerosol inhaler 1 - 2 puff inhalation Q4-6H PRN (Reason: shortness of breath or wheezing) Qty: 8.5 0RF guaifenesin [Mucinex] 600 mg tablet extended release 12hr 1,200 mg PO BID PRN (Reason: cough) Qty: 20 0RF azithromycin [Zithromax Z-Nimesh] 250 mg tablet See Rx Instructions .ROUTE .COMPLEX 5 Days Qty: 6 0RF Rx Instructions: For 250 mg dose pack: take 500 mg today (day 1), then 250 mg for 4 days (days 2-5) methylprednisolone [Medrol (Nimesh)] 4 mg tablets,dose pack See Rx Instructions .Route .COMPLEX 6 Days Qty: 21 0RF Rx Instructions: taper pack; No Action Classic 28 mg iron- 800 mcg tablet 1 tab PO DAILY levonorgestrel-ethinyl estrad [Aviane] 0.1-20 mg-mcg tablet 1 tab PO DAILY Qty: 28 11RF escitalopram oxalate [Lexapro] 10 mg tablet 10 mg PO DAILY Qty: 30 5RF Referrals Follow up/Referrals: Joe Singh APRN [Primary Care Provider] - See instructions Activity Restrictions/Add. Instructions Additional Instructions/Restrictions: Start antibiotic today. Be sure to complete entire prescription even if feeling better Monitor temp. Tylenol every 4 hours as needed and / or ibuprofen every 6 hours as needed ( As long as your primary care physician has told you that it ok to take both. For fever/aches/pains ER if no less than 101 despite Tylenol or Motrin Humidifier/vaporizer or hot steamy shower Inhaler every 4-6 hours as needed like we discussed. If unsure how to use it, ask pharmacist to demonstrate how. Should help open airways and improve cough, wheezing, and shortness of breath Mucinex during the day for your cough and cough suppressant only at night. Be sure to drink lots of water. Insurance may not cover a prescriptions for mucinex. Might be cheaper to get 400mg tablets and take 2 tablet in the morning, mid-day and evening with lots of water. *Tessalon Perles will not cause drowsiness but use at bedtime to help stop cough so that you may get some rest. *Start steroid tomorrowHelps with inflammation therefore, cough and wheezing. Follow directions on the package. Reviewed side effects. Patient reports taking them before. Follow up IMMEDIATELY for new or worsening of symptoms OR no noticeable improvement over the next 48-72 hours. 911 immediately for any life threatening symptoms such as chest pain or difficulty breathing Clinical Impressions Clinical Impression: Bronchitis Instructions Patient Instructions: Acute Bronchitis, Albuterol, Azithromycin Print Language Print Language: Occitan Discharge ED Provider[place]ari Head[place] [facility] [place] General Stated complaint: cough Mode of Arrival: Ambulatory Source of Information: Patient Time Seen by Provider: 02/05/24 12:05 HEENT Symptoms (Recalled from RN notes): No Resp Symptoms (Recalled from RN notes): Yes (cough and congestion) Skin Symptoms (Recalled from RN notes): No MS Symptoms (Recalled from RN notes): No Functional Status (Recalled from RN notes): wdl History of Present Illness Provider Complaint: Patient states that she has been sick for over month has take steriods and amoxicillin but still having cough, chest congestion and at times coughing up mucous States that she feels like her cough is getting worse and having pain in lungs at times with coughing so today she came in to get checked Related Data Home Medications ?Medication ?Instructions ?Recorded ?Confirmed vits no.126-ferrous fum 1 tab PO DAILY Supplement 03/02/23 10/29/23 28 mg iron-folic acid 800 mcg tablet (Classic ) Previous Rx's ?Medication ?Instructions ?Recorded levonorgestrel-ethinyl estradiol 1 tab PO DAILY #28 tabs 08/16/23 0.1 mg-20 mcg tablet (Aviane) escitalopram oxalate 10 mg tablet 10 mg PO DAILY #30 tabs 10/29/23 (Lexapro) albuterol sulfate 90 mcg/actuation 1 - 2 puff inhalation Q4-6H PRN 02/05/24 aerosol inhaler (Proventil HFA) shortness of breath or wheezing #8.5 grams azithromycin 250 mg tablet See Rx Instructions PO .COMPLEX 5 02/05/24 (Zithromax Z-Nimesh) days #6 tabs benzonatate 100 mg capsule 100 mg PO TID PRN cough #30 caps 02/05/24 guaifenesin 600 mg tablet, 1,200 mg (2 x 600 mg) PO BID PRN 02/05/24 extended release 12 hr (Mucinex) cough #20 tabs methylprednisolone 4 mg tablets in See Rx Instructions .Route 02/05/24 a dose pack (Medrol (Nimesh)) .COMPLEX 6 days #21 tabs Allergies Allergy/AdvReac Type Severity Reaction Status Date / Time No Known Allergies Allergy Verified 10/29/23 14:05 Worker's Comp Is this a Worker's Comp case?: [facility] Disclaimer: The information contained in this section may have been updated after the patient was seen, as this information can be updated by other users. Medical History Vaginal odor Vaginal discharge Atypical chest pain Surgical History History of tonsillectomy and adenoidectomy Family History Other Hyperlipidemia Thyroid disorder Social History Smoking Status: Never smoker alcohol intake: never substance use type: denies use current occupational status: employed Travel in the last 8 weeks: None ROS Obtained: Yes All systems reviewed & no additional complaints except as documented and Yes Systems reviewed as appropriate & no additional complaints except as documented Constitutional Constitutional: Reports system reviewed and no additional complaints, except as documented, Reports as per HPI and Reports headache(s) ENT Ears, Nose, Mouth, and Throat: Reports system reviewed and no additional complaints, except as documented, Reports as per HPI and Reports headache(s) Cardiovascular Cardiovascular: Reports system reviewed and no additional complaints, except as documented and Reports as per HPI Respiratory Respiratory: Reports system reviewed and no additional complaints, except as documented, Reports as per HPI, Reports chest congestion and Reports cough Neurologic Neurologic: Reports headache(s) Physical Exam General General appearance: alert and in no apparent distress ENT ENT exam: Present mucous membranes moist Respiratory Respiratory exam: Present normal lung sounds bilaterally; Absent respiratory distress or wheezes Cardiovascular Cardiovascular exam: Present regular rate, normal rhythm and normal heart sounds Neurological Exam Neurological exam: Present alert, oriented X3 and normal gait Medical Decision Making Anam Inquiry Pt receiving controlled substance: No Anam was queried for this patient: No Vital Signs: 02/05/24 11:55 Temperature 98.4 F Temperature Source Oral Pulse Rate [Left Brachial] 100 H Respiratory Rate 20 Blood Pressure [Left Arm] 113/74 Blood Pressure Mean [Left Arm] 87 02 Sat by Pulse Oximetry 92 L Oxygen Delivery Method Room Air
[2024-02-05] MEDS: METHYLPREDNISOLONE SOD SUCC 125MG VIAL 125 MG IM (12:20)
[2024-02-05] MEDS: LIDOCAINE 1% 5ML PF VIAL IM (12:20)
[2024-02-05] MEDS: cefTRIAXone 1GM VIAL 1 GM IM (12:20)
[2024-02-05 12:36] VITALS: BP 113/74; PULSE 92; RESP 20; TEMP 36.9; O2SAT 100
== END 2024-02-05 12:38 | disposition home or self-care (01) ==
PROVIDERS: Emergency Provider Nurse Practitioner; PCP Nurse Practitioner Family
DX: J20.9 Acute bronchitis, unspecified (principal); R07.1 Chest pain on breathing; R09.89 Other specified symptoms and signs involving the circulatory and respiratory systems
CPT/HCPCS: 96372; 99204; 99212; G0463; J0696; J2919

== ENCOUNTER 2024-03-06 16:12 | Outpatient (CLI) | payer OTHER, SELFPAY ==
[2024-03-06 17:14] LABS: HCG,Quantitative < 2 mIU/ml (0-5.42)
== END 2024-03-06 23:59 | disposition home or self-care (01) ==
LOC: LAB 16:13
PROVIDERS: PCP Nurse Practitioner Family; Visit Provider Obstetrics & Gynecology
DX: Z32.00 Encounter for pregnancy test, result unknown (principal)
CPT/HCPCS: 36415; 84702

== ENCOUNTER 2024-06-23 08:14 | Emergency (ER) | payer OTHER, SELFPAY ==
[2024-06-23 08:25] VITALS: BP 124/75; PULSE 89; RESP 18; TEMP 37.1; O2SAT 99; BMI 20.5
--- NOTE | 2024-06-23 08:30 | ED_ITS ---
Discharge Plan Disposition Patient Disposition: Home, Self-Care Condition: Good Prescriptions Prescriptions: New ievbbfqisgodxwk-accndepeh-ME [Bromfed DM] 2-30-10 mg/5 mL syrup 10 ml PO Q6H PRN (Reason: cold symptoms) Qty: 200 0RF moxifloxacin 0.5 % drops 1 drp ophthalmic (eye) TID 7 Days Qty: 3 0RF Rx Instructions: in Right eye as directed No Action fluticasone propionate [Flonase Allergy Relief] 50 mcg/actuation spray,suspension 1 spray intranasal BID Qty: 60 3RF Rx Instructions: administer into each nostril Classic 28 mg iron- 800 mcg tablet 1 tab PO DAILY levonorgestrel-ethinyl estrad [Aviane] 0.1-20 mg-mcg tablet 1 tab PO DAILY Qty: 84 4RF Referrals Follow up/Referrals: Joe Singh APRN [Primary Care Provider] - See instructions Activity Restrictions/Add. Instructions Additional Instructions/Restrictions: Clean matting from eye with warm water and baby shampoo Use eye drops as prescribed Follow up with your Eye Doctor if no improvement or any worsening of symptoms Return if needed Clinical Impressions Clinical Impression: Eye problem Instructions Patient Instructions: How to Put in Eye Drops, Conjunctivitis, DI for Conjunctivitis Print Language Print Language: Kosovan Discharge ED Provider: Tari Headley [facility] General Stated complaint: poss pink eye Mode of Arrival: Ambulatory Source of Information: Patient Limitations: No Limitations Time Seen by Provider: 06/23/24 08:30 Description of Symptoms (Recalled from Triage Doc. by RN): PATIENT C/O COUGH AND RUNNY NOSE THAT STARTED SUNDAY. PATIENT ALSO C/O REDNESS AND DRAINAGE TO RIGHT EYE HEENT Symptoms (Recalled from RN notes): Yes Resp Symptoms (Recalled from RN notes): Yes Skin Symptoms (Recalled from RN notes): No MS Symptoms (Recalled from RN notes): No Functional Status (Recalled from RN notes): WNL History of Present Illness Provider Complaint: Patient states that she has been having a cough and runny nose that started on Sunday States that she does wear contacts and not sure if she may have got an infection from the contacts or may have pink eye States that she started having some redness, irritation and drainage from right eye and this morning her eye was a little crusty Denies vision changes or blurry vision Related Data Home Medications ?Medication ?Instructions ?Recorded ?Confirmed vits no.126-ferrous fum 1 tab PO DAILY Supplement 03/02/23 06/17/24 28 mg iron-folic acid 800 mcg tablet (Classic ) Previous Rx's ?Medication ?Instructions ?Recorded levonorgestrel-ethinyl estradiol 1 tab PO DAILY #84 tabs 03/07/24 0.1 mg-20 mcg tablet (Aviane) fluticasone propionate 50 1 spray intranasal BID #60 mL 06/17/24 mcg/actuation nasal spray,suspension (Flonase Allergy Relief) csncnltbkejwijh-veqogcbeusnwydb-FD 10 ml PO Q6H PRN cold symptoms 06/23/24 2 mg-30 mg-10 mg/5 mL oral syrup #200 mL (Bromfed DM) moxifloxacin 0.5 % eye drops 1 drp ophthalmic (eye) TID 7 days 06/23/24 #3 mL Allergies Allergy/AdvReac Type Severity Reaction Status Date / Time No Known Allergies Allergy Verified 06/17/24 09:15 Worker's Comp Is this a Worker's Comp case?: No [facility] Disclaimer: The information contained in this section may have been updated after the patient was seen, as this information can be updated by other users. Medical History Possible Chronic inflammation of both eustachian tubes Tinnitus, bilateral popping noise, bilaterally Dizziness Ear pain Vaginal odor Vaginal discharge Atypical chest pain Surgical History History of tonsillectomy and adenoidectomy Family History Other Hyperlipidemia Thyroid disorder Social History Smoking Status: Never smoker alcohol intake: never substance use type: denies use current occupational status: employed Travel in the last 8 weeks: None Have you lived/traveled outside [place] in past 30 days?: No Contact w/someone who lives/traveled outside US past 30 days?: No Exposure to someone with infectious disease in past 14 days?: No Do you have a fever (greater than 100.4 F or 38 C)?: No Have you tested positive for COVID-19: No Exposed to someone with COVID-19 in past 14 days?: No Do you have a sore throat?: No Do you have a cough?: No Do you have any weakness?: No Do you have any diarrhea?: No Are you experiencing any unusual bleeding?: No Do you have any muscle aches/pain?: No Do you have any abdominal pain?: No Are you experiencing loss of taste or smell?: No ROS Obtained: Yes All systems reviewed & no additional complaints except as documented and Yes Systems reviewed as appropriate & no additional complaints except as documented Constitutional Constitutional: Reports system reviewed and no additional complaints, except as documented and Reports as per HPI Eyes Eyes: Reports system reviewed and no additional complaints, except as documented, Reports as per HPI, Reports eye discharge and Reports irritation ENT Ears, Nose, Mouth, and Throat: Reports system reviewed and no additional complaints, except as documented, Reports as per HPI, Reports nasal congestion and Reports nasal discharge Cardiovascular Cardiovascular: Reports system reviewed and no additional complaints, except as documented and Reports as per HPI Respiratory Respiratory: Reports system reviewed and no additional complaints, except as documented, Reports as per HPI and Reports cough Gastrointestinal Gastrointestingal: Reports system reviewed and no additional complaints, except as documented and as per HPI Physical Exam General General appearance: alert and in no apparent distress Eye Eye exam: Present conjunctival redness (mild redness noted ) and discharge (mild yellowish drainage noted in corner of right eye) ENT ENT exam: Present mucous membranes moist Respiratory Respiratory exam: Present normal lung sounds bilaterally; Absent respiratory distress or wheezes Cardiovascular Cardiovascular exam: Present regular rate, normal rhythm and normal heart sounds Abdominal Exam Abdominal exam: Present soft and normal bowel sounds; Absent distention or tenderness Neurological Exam Neurological exam: Present alert, oriented X3 and normal gait Medical Decision Making Medical Records Screening: Per USPSTF and CDC recommendations, given the prevalence of disease in our region, it is our hospital?s policy to screen for HIV and viral Hepatitis for all patients aged 18 and over and those with ongoing risk factors. Anam Inquiry Pt receiving controlled substance: No Anam was queried for this patient: No Vital Signs: 06/23/24 08:25 Temperature 98.7 F Temperature Source Oral Pulse Rate [Left Brachial] 89 Respiratory Rate 18 Blood Pressure [Left Arm] 124/75 Blood Pressure Mean [Left Arm] 91 Blood Pressure Source [Left Arm] Automatic Cuff Blood Pressure Position [Left Arm] Sitting 02 Sat by Pulse Oximetry 99 Oxygen Delivery Method Room Air
[2024-06-23 08:49] VITALS: BP 124/75; PULSE 89; RESP 18; TEMP 37.1; O2SAT 99
== END 2024-06-23 08:52 | disposition home or self-care (01) ==
PROVIDERS: Emergency Provider Nurse Practitioner; PCP Nurse Practitioner Family
DX: H57.9 Unspecified disorder of eye and adnexa (principal); R05.9 Cough, unspecified; R09.89 Other specified symptoms and signs involving the circulatory and respiratory systems
CPT/HCPCS: 99212; G0381

== ENCOUNTER 2024-11-12 12:16 | Outpatient (CLI) | payer OTHER, SELFPAY ==
[2024-11-12 13:21] LABS: Basophils % 0.8 % (0.1-2.0); Eosinophils % 0.3 % (0.1-12.0); Hematocrit 41.8 % (37.0-47.0); Hemoglobin 13.7 g/dL (12.2-16.2); Immature Granulocytes # 0.01 10^3uL; Immature Granulocytes % 0.3 %; Lymphocytes # 1.5 K/mm3 (0.7-4.5); Lymphocytes % 42.3 % (10-50); Mean Corpuscular HGB Conc 32.8 g/dL (31.8-35.4); Mean Corpuscular Hemoglobin 26.6 pg (27.0-31.2); Mean Platelet Volume 9.9 fl (7.4-10.4); Monocytes # 0.3 K/mm3 (0.1-1.0); Monocytes % 7.2 % (1.7-9.3); Neutrophils # 1.8 K/mm3 (1.8-7.8); Neutrophils % 49.1 % (37.0-80.0); Nucleated Red Blood Cells # 0 10^3/uL; Nucleated Red Blood Cells % 0 %; Platelet Count 139 K/mm3 (142-424); Red Blood Count 5.16 M/mm3 (4.20-5.40); Red Cell Distribution Width 13.2 % (11.5-17.5); Red Cell Distribution Width-SD 39.3 fL; White Blood Count 3.6 K/mm3 (4.8-10.8)
[2024-11-12 13:53] LABS: Alanine Aminotransferase 21 U/L (12-78); Albumin Level 4.5 g/dl (3.5-5.0); Alkaline Phosphatase 74 U/L (38-126); Anion Gap 7.2 mEq/L (5-15); Aspartate Amino Transferase 24 U/L (14-36); Bilirubin,Direct 0.2 mg/dl (0.0-0.4); Bilirubin,Indirect 0.7 mg/dL (0.0-0.9); Bilirubin,Total 0.9 mg/dl (0.2-1.3); Bilirubin,Unconjugated 0.7 mg/dL (0.0-1.1); Blood Urea Nitrogen 9 mg/dl (7-17); Calcium 9.7 mg/dl (8.4-10.2); Carbon Dioxide 30 mmol/L (22.0-30.0); Chloride 103 mmol/L (98-107); Cholesterol 134 mg/dl (140-200); Estimated Glomerular Filt Rate 104 ml/min (>60); GFR (African American) 125 ML/MIN (>60); Glucose 97 mg/dl (74-100); HDL Cholesterol 45 mg/dl (40-60); Magnesium 1.7 mg/dl (1.6-2.3); Potassium 4.2 mmoL/L (3.5-5.1); Sodium 136 mmol/L (136-145); Triglycerides 107 mg/dl (30-150); VLDL Cholesterol 21 mg/dL (0-40)
[2024-11-12 14:04] LABS: Direct LDL Cholesterol 50.13 mg/dL (100-129)
[2024-11-12 14:08] LABS: Free T4 (Free Thyroxine) 1.38 ng/dl (0.78-2.19)
[2024-11-12 14:09] LABS: 25-OH Vitamin D, Total 19.8 ng/mL (30-100)
[2024-11-12 14:28] LABS: Ferritin 22.2 ng/ml (6.24-137)
[2024-11-12 14:43] LABS: Vitamin B12 651 pg/mL (239-931)
[2024-11-12 15:51] LABS: Iron 43 ug/dL (37-170)
[2024-11-12 16:00] LABS: Total Iron Binding Capacity 359 ug/dL (265-497)
== END 2024-11-12 23:59 | disposition home or self-care (01) ==
LOC: LAB 12:17
PROVIDERS: PCP Nurse Practitioner Family; Visit Provider Physician Assistant
DX: R00.0 Tachycardia, unspecified (principal); R94.31 Abnormal electrocardiogram [ECG] [EKG]; R55 Syncope and collapse; R00.2 Palpitations; R42 Dizziness and giddiness
CPT/HCPCS: 36415; 80048; 80061; 80076; 82306; 82607; 82728; 83540; 83550; 83735; 84439; 84443; 85025; 93225; 93227

== ENCOUNTER 2024-11-26 10:52 | Outpatient (RCR) | payer OTHER, SELFPAY ==
--- NOTE | 2024-11-26 16:44 | HMH.PTOPEV ---
PT Outpatient Evaluation Rehab PT Outpatient Evaluation Start: 11/26/24 10:57 Freq: Status: Active Protocol: Document 11/26/24 16:16 PHORNE (Rec: 11/26/24 16:43 PHORNE [id number]) E-signed By Nishant Dennis, PT Outpatient Therapy Subjective History Subjective History This is the initial PT eval for Pricilla Salter, 24 yowf who presents with c/o dizziness and vertigo symptoms x ~ 1 yr overall. She reports her symptoms appear somewhat randomly without specific position changes, but more frequently when walking or driving. She reports sudden onset with symptoms lasting 5-10 minutes each episode. She also reports these episodes can be associated with intermittent nausea, lightheadedness, R ear tinnitus, worsened allergy symptoms. She reports laying supine helps ease her symptoms. Chief Complaint Other Symptoms Aggravated Physical Activity,Walking By Prior Functional None Limitations Current Functional Driving,Walking Limitations Dynamic Gait Index Test Protocol Gait Level Surface Normal Query Text: Instructions: Walk at your normal speed from here to the next sohail (20'). Grading: Sohail the lowest category that applies. Change in Gait Speed Normal Query Text: Instructions: Begin walking at your normal pace (for 5') , when I tell you go , walk as fast as you can (for 5'). When I tell you slow , walk as slowly as you can ( for 5'). Grading: Sohail the lowest category that applies. Gait with Horizontal Mild Impairment Head Turns Query Text: Instructions: Begin walking at your normal pace. When I tell you to look right , keep walking straight, but turn you head to the right. Keep looking to the right unit I tell you look left , then keep walking straight and turn your head to the left. Keep your head to the left until I tell you look straight , then keep walking straight, but return you head to the center. Grading: Sohail the lowest category that applies. Gait with Vertical Normal Head Turns Query Text: Instructions: Begin walking at your normal pace. When I tell you to look up , keep walking staight, but tip your head up. Keep looking up until I tell you to look down , then keep walking straight and tip your head down. Keep your head down until I tell you look straight , then keep walking straight, but return your head to the center. Grading: Sohail the lowest category that applies. Gait and Pivot Turn Normal Query Text: Instructions: Begin walking at your normal pace. When I tell you turn and stop , turn as quickly as you can to face the opposite direction and stop. Grading: Sohail the lowest category that applies. Step Over Obstacle Normal Query Text: Instructions: Begin walking at your normal speed. When you come to the shoebox, step over it, not around it and keep walking. Grading: Sohail the lowest category that applies. Step Around Normal Obstacles Query Text: Instructions: Begin walking at normal speed. When you come to the first cone (about 6' away) , walk around the right side of it. When you come to the second cone (6' past first cone), walk around it to the left. Grading: Sohail the lowest category that applies. Steps Normal Query Text: Instructions: Walk up these stairs as you would at home. At the top, turn around and walk down . Grading: Sohail the lowest category that applies. Scoring Dynamic Gait Index 23 Score Miscellaneous Dx PT Eval Objective Objective [place]-Hallpike and horizontal roll testing performed with NO NYSTAGMUS NOTED, but pt c/o vertigo symptoms with every position. VOR cancellation positive for symptom reproduction to the R side. Smooth pursuit, gaze evoked nystagmus, vergence, Saccades, cover/uncover test, cross cover test all normal VOR cancellation and Head Impulse Test both reproduce symptoms. Differential diagnosis based on symptoms reported may be consistent with UVH vs VM. Outpatient Therapy Assessment Impairments Problems/ Impaired Balance,Impaired Self Care/Self Management Impairmments Prognosis Rehab Potential Good Comment Skilled therapy services are indicated to aid reduction of vertigo symptoms and number of episodes in order to return pt to PLOF with all daily activities including prolonged walking and driving. Clinical Impression Consistent with Yes Diagnosis Short Term Goals Number of Weeks 4 Improve Self Care/ Yes: Minimal episodes of vertigo, 5 or less per week Self Management Patient to be Ind w/ Yes HEP Retirement Goals Number of Weeks 8 Increase DGI Score Yes: Improve Self Care/ Yes: No episodes of vertigo per week, especially with Self Management driving Patient to be Ind w/ Yes Advanced HEP Outpatient Therapy Plan of Care Treatment Plan May Include Therapeutic Exercise Yes Including Home Exercise Program Manual Therapy Yes Techniques Neuromuscular Re- Yes education Therapeutic Yes Activities to Return to Previous Functional/Work Level ADL/Self Care Yes Education Eval/Re-Eval Yes Frequency Times per week 1 Duration Number of Weeks 8 Addendums This patient is a No candidate for social or vocational rehab ? Patient/Guardian Yes verbally acknowledges understanding of treatment program and consents to further treatment? Patient/Guardian Yes verbally acknowledges understanding of diagnosis, prognosis and goals for treatment? Eval Complexity PT Charges 78691 - High Complexity Shoulder/Elbow Eval Shoulder Objective Measurements Elbow Objective Measurements PHYSICIAN CERTIFICATION: I certify the specified therapy services for Pricilla Salter are required, authorized, and reviewed every 30 days.
== END 2024-11-26 23:59 | disposition home or self-care (01) ==
LOC: PT 10:52
PROVIDERS: PCP Nurse Practitioner Family; Visit Provider Physician Assistant
DX: R94.31 Abnormal electrocardiogram [ECG] [EKG] (principal); R55 Syncope and collapse; R00.2 Palpitations; R42 Dizziness and giddiness
CPT/HCPCS: 97110; 97163

== ENCOUNTER 2025-02-20 14:04 | Outpatient (CLI) | payer OTHER, SELFPAY ==
--- NOTE | 2025-02-20 13:45 | MR_ITS ---
FINAL REPORT CLINICAL HISTORY: Dizziness unrepsonsive to multiple treatments right sided dizziness going on for months COMPARISON: None FINDINGS: Multi planar MR imaging was obtained through the brain without contrast. The midline structures appear intact. There is no evidence of Chiari malformation. On T2 and flair axial images the brain parenchyma is homogeneous. On diffusion-weighted images there is no evidence of restricted diffusion. The visualized paranasal sinuses demonstrate normal signal voids. The seventh and eighth nerve root complexes are intact. IMPRESSION: Essentially unremarkable nonenhanced brain MRI. Reviewed, Interpreted and Dictated by Simon Donovan MD Transcribed by Osiris Javier Authenticated and [facility]
== END 2025-02-20 23:59 | disposition home or self-care (01) ==
LOC: RAD 14:04
PROVIDERS: PCP Internal Medicine; Visit Provider Internal Medicine
DX: R55 Syncope and collapse (principal); R42 Dizziness and giddiness
CPT/HCPCS: 70551